=== PATIENT | male | born 1970 | race Caucasian/White ===

== ENCOUNTER → 2017-04-14 | Outpatient (CLI) | payer MEDICAID | LOC: FIMAGING 16:17 | DX: R76.11 Nonspecific reaction to tuberculin skin test without active tuberculosis (principal) ==

== ENCOUNTER 2017-08-13 17:48 | Emergency (ER) | payer MEDICAID ==
[2017-08-13 17:55] VITALS: RESP 16; TEMP 97.7
--- NOTE | 2017-08-13 18:27 | EDPHY ---
H & P Stated Complaint: thinks may have frostbite/pain in all fingrs Time Seen by Provider: 08/13/17 18:15 HPI/ROS: Chief complaint: Pain in hands and feet History of present illness: This is a 46-year-old male who presents to the emergency department reporting pain in his hands and feet. He states he has had pain for the last 4 days. It started after he slept outside in the cold. He went to another hospital and was told he had frostbite. He is supposed to follow up with a wound care doctor tomorrow, he states he has an appointment. He states his hands and feet are still bothering him. He needs help cleaning and dressing the wounds. The denies other associated signs or symptoms. - Personal History Current Tetanus/Diphtheria Vaccine: Yes - Medical/Surgical History Hx Asthma: No Hx Chronic Respiratory Disease: No Hx Diabetes: No Hx Cardiac Disease: No Hx Renal Disease: No Hx Cirrhosis: No Hx Alcoholism: No Hx HIV/AIDS: No Hx Splenectomy or Spleen Trauma: No Other PMH: facial fx - Social History Smoking Status: Current every day smoker - Physical Exam Exam: General Appearance: Alert and no distress. Eyes: Pupils equal and round no injection. Respiratory: Chest is non tender, lungs are clear to auscultation. Cardiovascular: Regular rate and rhythm. Capillary refill brisk in the fingers of both hands. Brisk in the foot although there are no digits of the feet. Musculoskeletal: Mild erythema to the hands and feet. No blistering. No eschar. Significantly dry skin. 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 Skin: Mild erythema and dry skin of the hands and feet Constitutional: Initial Vital Signs Temperature (C) 36.5 C 08/13/17 17:53 Heart Rate 94 08/13/17 17:53 Respiratory Rate 16 08/13/17 17:53 Blood Pressure 118/97 H 08/13/17 17:53 O2 Sat (%) 94 08/13/17 17:53 O2 Delivery Mode Room Air Allergies/Adverse Reactions: No Known Allergies Allergy (Verified 08/13/17 17:52) Home Medications: Medication Instructions Recorded oxyCODONE/APAP 5/325 [Percocet 1 - 2 tab PO Q4H PRN #20 tab 05/12/14 5/325 (RX)] Medical Decision Making ED Course/Re-evaluation: Patient seen under the supervision of my secondary supervising physician Dr. Krish Reyes. Patient presents to the emergency department reporting discomfort in his hands and feet after suffering from frostbite. There is mild erythema. Significantly dry skin. No signs of overt infection. The wounds are cleaned and dressed. Patient asked for pain medication. I have offered him ibuprofen or Tylenol. He became extremely belligerent as I would not give him anything stronger. After his wounds were dressed he was escorted from the emergency room. He is given referral information to a primary care doctor and was asked to keep the appointment with the wound care clinic. Differential Diagnosis: Included but not limited to cold injury, infection, dry skin Departure - Departure Disposition: Home, Routine, Self-Care Clinical Impression: Frostbite Qualifiers: Encounter type: initial encounter Qualified Code(s): T33.90XA - Superficial frostbite of unspecified sites, initial encounter Condition: Good Instructions: Frostbite (ED), Acute Wounds (ED) Additional Instructions: Follow-up with a primary care doctor for recheck If symptoms worsen or new symptoms develop return to the emergency room for recheck Referrals: NONE *PRIMARY CARE P,. [Primary Care Provider] - As per Instructions [facility],. [Clinic] - As per Instructions
[2017-08-13 18:34] VITALS: BP 145/98; PULSE 98; O2SAT 91
== END 2017-08-13 18:49 | disposition home or self-care (01) ==
DX: T33.90XA Superficial frostbite of unspecified sites, initial encounter (principal); F17.200 Nicotine dependence, unspecified, uncomplicated; X31.XXXA Exposure to excessive natural cold, initial encounter; Y92.89 Other specified places as the place of occurrence of the external cause; Y93.89 Activity, other specified